=== PATIENT | female | born 1985 | race Caucasian/White ===

== ENCOUNTER 2019-01-09 04:00 | Inpatient (IN) ==
[2019-01-09] MEDS ORDERED: Metoclopramide 10 MG/2 ML VIAL IVP PRN (04:20)
[2019-01-09] MEDS ORDERED: Lidocaine 1% 20 ML MDV INFILT PRN (04:20)
[2019-01-09] MEDS ORDERED: Famotidine 20 MG/2 ML VIAL IVP PRN (04:20)
[2019-01-09] MEDS ORDERED: Ondansetron 4 MG/2 ML VIAL IVP PRN (04:20)
[2019-01-09] MEDS ORDERED: Naloxone 0.4 MG/ML INJ IVP PRN (04:20)
[2019-01-09] MEDS ORDERED: miSOPROStol 25 MCG TABLET PO PRN (04:20)
[2019-01-09] MEDS ORDERED: *HR* Nalbuphine 10 MG/ML AMPUL IVP PRN (04:20)
[2019-01-09] MEDS ORDERED: Ringers Solution, Lactated 1,000 ML IVC SCH (04:30)
[2019-01-09 05:20] LABS: Basophils % 0.3 %; Eosinophils # 0.1 K/mcL (0.0-0.6); Eosinophils % 1.2 %; Hematocrit 39.4 % (35.3-44.9); Hemoglobin 13.4 g/dL (11.5-15.4); Immature Granulocytes % 1.4 % (0-4); Lymphocytes # 2.6 K/mcL (0.6-4.6); Lymphocytes % 25.8 %; Mean Corpuscular Hemoglobin 29.3 pg (28.0-33.3); Mean Corpuscular Volume 86.2 fL (83.0-100.0); Mean Platelet Volume 9.4 fL (9.4-12.4); Monocytes # 0.8 K/mcL (0.0-1.3); Neutrophils # 6.3 K/mcL (1.6-8.9); Platelet Count 250 K/mcL (140-400); Red Blood Count 4.57 M/mcL (3.82-4.97); Red Cell Distribution Width 14.4 % (11.5-14.5); Segmented Neutrophils % 63.3 %
[2019-01-09 05:28] LABS: Amphetamine Screen,Urine Negative ng/mL (Cutoff=1000); Barbiturate Screen,Urine Negative ng/mL (Cutoff=200); Benzodiazepines Screen,Urine Negative ng/mL (Cutoff=200); Cannabinoid Screen,Urine Negative ng/mL (Cutoff = 50); Cocaine Screen,Urine Negative ng/mL (Cutoff= 300); Opiate Screen,Urine Negative ng/mL (Cutoff=300); Phencyclidine Screen,Urine Negative ng/mL (Cutoff=25)
[2019-01-09 06:04] LABS: Alanine Aminotransferase 10 Units/L (7-52); Aspartate Amino Transferase 14 Units/L (13-39); BUN/Creatinine Ratio 17 (6-26); Blood Urea Nitrogen 9 mg/dL (6-20); Creatinine,Urine 57 mg/dL; Lactate Dehydrogenase 127 Units/L (140-271); Protein/Creatinine Ratio,Urine 0.12 mg/mg (0.00-0.20); Uric Acid 5.6 mg/dL (2.3-7.6); eGFR For Non-African Americans > 60 (> 60)
[2019-01-09] MEDS ORDERED: Bupivacaine-MPF 0.25% 10 ML VIAL EP ONE (08:49)
[2019-01-09] MEDS ORDERED: *HR* FentaNYL (PF) 100 MCG/2 ML VIAL EP ONE (08:49)
--- NOTE | 2019-01-09 08:50 | History & Physical Report ---
Date of Encounter: 01/09/19 Time of Encounter: 08:48 24 Hour HP Update - Instructions Instructions: If the History and Physical is less than 30 days old and was completed prior to A.M. admission and or procedure and has NOT been updated on calendar day of procedure please complete this update prior to performing procedure. - Update Patient reports changes in Medical Condition: No Changes in examination, assessment, or condition: No Changes in Medication: No Preop tests/diagnostics Reviewed: Yes Consent for Planned Operative Procedure(s) Verified: Yes
[2019-01-09] MEDS ORDERED: Epidural Premix (fent/bupiv) 110 ML EP SCH (09:00)
[2019-01-09] MEDS ORDERED: Lidocaine -MPF 1% 5 ML AMPUL ONE ×2 (09:10→12:06)
[2019-01-09] MEDS ORDERED: Bupivacaine-MPF 0.25% 10 ML VIAL ONE (09:10)
[2019-01-09] MEDS ORDERED: *HR* FentaNYL (PF) 100 MCG/2 ML VIAL ONE (09:11)
--- NOTE | 2019-01-09 09:19 | Anesthesia Evaluation PreOp ---
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 ASSISTANT History: Denies Any Significant HX Other Medical History: Other (anxiety, chronic lower back pain) Anesthesia History: No Prior Anesthetic Complications (never had any procedure requiring GA; denies family h/o GA complications), Past Anesthesia (ALECIA x 1--no issues) : Yes Alcohol Use: none Drug use: none Medications and Allergies Astelin 01/07/18 [History] Buspirone HCl 10 mg PO BID 01/07/18 [History] Flonase 01/07/18 [History] Montelukast 01/07/18 [History] Zyrtec 10 mg PO DAILY 01/07/18 [History] Montelukast [Singulair] 10 mg PO DAILY 01/09/19 [History] Vits96/Iron Fum/Folic [ Tablet] 1 each PO DAILY 01/09/19 [History] Allergy/AdvReac Type Severity Reaction Status Date / Time pseudoephedrine AdvReac Anxiety Verified 01/09/19 04:48 [From [facility]] - Meds/Allergy Pre-op Review Medications Reviewed: Yes Allergies Reviewed: Yes Beta Blockers on Current Med List: No Anesthesia Results - Labs 01/09/19 05:00 01/09/19 05:00 Anesthesia Exam 144/88, HR 86 O2 Sat Height 1.75 m Weight 117 kg NPO (# of Hours): solids > 7hrs Pain Scale: 3 Pain Scale Used: Numeric (1 - 10) - HEENT Pupil (Motor): Pupils equal Mallampati: II Teeth: Normal Oral Opening: Greater than 3 - RAILWAYS ASSISTANT LOC: Oriented RAILWAYS ASSISTANT Motor: Normal RUE, Normal LUE, Normal RLE, Normal LLE, Normal Face RAILWAYS ASSISTANT Sensory: Normal: RUE, LUE, RLE, LLE, Face - Cardiac Rhythm: Regular Murmur: None - Pulmonary Breath Sounds: bilateral Clear Respiratory Effort: Symmetrical Anesthesia Assess/Plan ASA Score: 2 Level of consciousness: Cooperative, Oriented, Tranquil Anesthetic Plan: Epidural Autologous Blood: No Monitoring Plan: Standard Monitors Recovery Plan: Other
--- NOTE | 2019-01-09 10:19 | OB Labor Progress Note ---
Date of Encounter: 01/09/19 Time of Encounter: 10:17 Labor Progress Note - Subjective Subjective: Pt reports mild discomfort with contractions. - Cervix Cervix: 5/80/-1 - Heart Tones Heart Tones: Category I - [place]: 3-5 minutes - Interventions Interventions: AROM for moderate amount clear fluid. IUPC and FSE placed. - Plan Physician notified: Yes Physician notified details: Dr. Dominguez notified of interventions. Plan: Continue to monitor. Plan for pitocin to begin in 30 minutes if contractions not adequate.
[2019-01-09] MEDS ORDERED: Oxytocin 20 units/ LR 1000 mL 20 UNIT/1,000 ML BAG IVC SCH ×2 (10:30→22:22)
--- NOTE | 2019-01-09 12:34 | Anesthesia Procedures ---
Date of Encounter: 01/09/19 Time of Encounter: 11:30 Procedures: Anesthesia - Epidural/Spinal Patient ID/Chart reviewed: Yes Patient examined: Yes OB Eval: Gestational age: 39 weeks 3 days OB Eval: : 2 OB Eval: Hx Para: 1 OB Eval: Dilated at (cm): 5 OB Eval: Contractions: Non-stressed pattern Consent Obtained: Yes Supplemental Oxygen: None/Room Air Site Prep: Aseptic Technique, Sterile prep and drape, Povidone-Iodine 1% Patient position: upright Local Anesthetic: Lidocaine 1% Amount of Local Anesthetic used: 3 Touhy Needle Gauge: 18 Touhy Needle Depth (cm): 6 Catheter Depth at Skin (cm): 15 Test Dose (1.5% Lido + Epi): Volume given (mls): 5 Test Dose Result: Negative Loading Dose: Fentanyl (mcg): 100 Loading Dose: Other: 5 Loading Dose Administered: Thru Catheter Infusion Med: 0.125% Bupivacaine w/ 2 mcg/ml Fentanyl Infusion Rate (mls/hr): 16 (w/ demand bolus of 6mL q30min PRN) Catheter Secured in Place: Tegaderm, Tape Interspace Used: L4-L5 Loss of Resistance (LIDYA): Yes Blood: No CSF: No Paresthesia: No Procedure: multiple failed attempts by Fallon Milner CRNA at L3/4 & L4/5 interspaces. Patient not really tolerating procedure despite multiple injections of 1% lido for topicalization from either pain w/ Tuohy needle advancement or paresthesias. Dr. Velasco called to bedside and successful on 1st attempt at L4/5 interspace. VSS Vitals + FHT's: Please see Gabbi FLORES's electronic records for VS entry
--- NOTE | 2019-01-09 13:08 | OB Labor Progress Note ---
Addendum entered and electronically signed by Antoine Milner CRNA 01/09/19 20:56: Delivery Date: 01/09/19 Delivery Time: 19:24 Original Note: Date of Encounter: 01/09/19 Time of Encounter: 13:06 Labor Progress Note - Subjective Subjective: The patient feels tingling in her hands bilaterally. She has nasal congestion and has been tearful after the long process of getting her epidural. She has no shortness of breath. She reports comfort with contractions after epidural placement - Vital Signs Vital Signs: Afebrile, vital signs stable. Blood pressure 129/72, pulse 93 - Cervix Cervix: Exam attempted but unable to reach cervix, bladder full - Heart Tones Heart Tones: 120s baseline, CAT 1 - [place]: Contractions 2-4 minutes after amniotomy - Interventions Interventions: 39 week IUP with transient hypertension, LGA fetus with maternal obesity. Estimated weight 8 lbs. 12 oz. on 38 week ultrasound. Continue close monitoring of labor and patient's condition. She reports improved symptoms with being elevated. SANITIZER decreased epidural rate from 16 down to 12. - Plan Plan: Continue induction of labor. Wise catheter to drain bladder. Anticipate vaginal delivery
[2019-01-09] MEDS ORDERED: Acetaminophen 325 MG TABLET PO PRN ×2 (15:11→22:22)
[2019-01-09] MEDS ORDERED: Ketorolac 30 MG/ML VIAL IVP ONE (19:52)
--- NOTE | 2019-01-09 20:02 | OB/GYN Procedure Note ---
Delivery - Delivery Date: 01/09/19 Provider: Vannesa Dominguez Intrapartum events: none Delivery induction: misoprostol Delivery augmentation: rupture of membranes, pitocin Delivery monitor: external FHT, external uterine, internal FHT, internal uterine Anesthesia: epidural Quantitated Blood Loss: 50 - Infant (s) Infant A Infant Delivery Date: 01/09/19 Delivery Time: 19:24 Presentation: vertex Position: SKYLAR Route of delivery: Gender: Male Viability: Viable Pounds: 8 Ounces: 13 Weight Gram: 3.99 kg at 1 minute: 8 at 5 mins: 9 Shoulder Dystocia: not encountered Placenta: spontaneous Cord: nuchal cord, 3 umbilical vessels, nuchal reduced - Repair Episiotomy: none Laceration Description: Perineal - 2nd Degree - Complications Delivery complications: none Delivery comments: The patient was complete and pushing with epidural anesthesia with a spontaneous vaginal delivery in the SKYLAR position of a vigorous male infant weighing 8 lbs.13 oz. with Apgars of 8 at 1 minute and 9 at 5 minutes. There was a nuchal cord x1, which was reduced on the perineum. Infant was placed on the maternal abdomen and handed to the nursery care team. The cord was clamped and cut after pulsations ceased. The placenta was delivered spontaneous and intact. Three- vessel cord confirmed. Second-degree midline laceration was repaired with 3-0 Monocryl in usual fashion. Estimated blood loss 50 mL, complications none. Both mother and infant were recovering in stable condition in the LDR - Disposition Mom disposition: stable in LDR disposition: stable in LDR
[2019-01-09] MEDS ORDERED: Benzocaine/Menthol 56 GM AEROSOL SPRAY TP PRN (22:22)
[2019-01-09] MEDS ORDERED: Lanolin 7 G OINT...G. TP PRN (22:22)
[2019-01-10] MEDS: Ibuprofen 600 MG TABLET PO PRN (02:24)
[2019-01-10] MEDS: *HR* HYDROcodone/Acet 5/325 mg TABLET PO PRN ×4 (07:22→20:26)
[2019-01-10] MEDS: Prenatal Vit/FA 1 EACH TABLET PO SCH (09:56)
[2019-01-10] MEDS: Loratadine 10 MG TABLET PO SCH (09:57)
--- NOTE | 2019-01-10 11:00 | OB/GYN Progress Note ---
Date of Encounter: 01/10/19 Time of Encounter: 10:56 - Assessment and Plan (1) Status post vaginal delivery Current Visit: Yes Status: Acute S/P vaginal delivery day 1 VSS Lochia light without clots Voiding without difficulty Passing gas Tolerating regular diet Anticipate discharge home tomorrow POC per consult with Dr. Davenport Subjective - Subjective Interval history: S/P Vaginal Delivery Day 1 Patient states pain adequate with medication Bleeding is light without clots Passing gas with difficulty C/o neck pain Doesn't feel ready to be discharged Anticipate discharge home tomorrow Patient reports: appetite normal, voiding normally, pain well controlled, ambulating normally : doing well Objective - Latest Vital Signs Latest vital signs: Vital Signs Temp Pulse Resp BP Pulse Ox 01/10/19 08:31 97.9 F 89 14 117/79 96 01/10/19 03:30 99.2 F 95 14 123/83 97 01/10/19 00:13 98.5 F 90 16 123/78 96 01/09/19 23:15 99.3 F 98 16 114/74 97 01/09/19 22:15 98.4 F 88 16 143/81 97 Intake and Output 01/09/19 01/10/19 01/10/19 23:59 07:59 15:59 Output Total 600 / 600 Balance -600 / -600 Output: Urine 600 / 600 Other: Weight 111.221 kg Patient Weight 01/10/19 23:59 Weight 111.221 kg - Exam Lungs: bilateral: normal Chest: Normal S1, Normal S2 Extremities: Present: normal Abdomen: Present: normal appearance, soft. Absent: gravid Uterus: Present: normal, firm Uterus Position: 1 Finger Below Umbilicus, Midline
[2019-01-11] MEDS: Ibuprofen 600 MG TABLET PO PRN (07:02)
[2019-01-11] MEDS: Loratadine 10 MG TABLET PO SCH (08:43)
[2019-01-11] MEDS: Prenatal Vit/FA 1 EACH TABLET PO SCH (08:43)
[2019-01-11 08:59] VITALS: BP 130/87
--- NOTE | 2019-01-11 09:38 | Discharge Summary ---
Date of Encounter: 01/11/19 Time of Encounter: 09:34 - Discharge Diagnosis (1) Status post vaginal delivery Priority: Primary Status: Acute Comments: Pt states feeling very anxious and sore, pt states she had panic attack last n ight and has not been able to sleep. Currently on Buspar managed by PCP. Pain well managed on po pain medication and tolerates diet. Desires discharge. Offered to stay today, but patient wants to be discharged. - Discharge Medications Prescriptions: New Acetaminophen [Tylenol] 650 mg PO Q6HR PRN tablet PRN Reason: Mild Pain Ibuprofen [Motrin] 600 mg PO Q6HR PRN #60 tablet PRN Reason: Cramping Docusate [Colace] 100 mg PO BID #30 capsule Lanolin [Lansinoh] 1 appl TP Q4HR PRN oint...g. PRN Reason: Continue Zyrtec 10 mg PO DAILY Montelukast Flonase Buspirone HCl 10 mg PO BID Astelin Montelukast [Singulair] 10 mg PO DAILY Vits96/Iron Fum/Folic [ Tablet] 1 each PO DAILY Home Medications: Astelin 01/07/18 [History] Buspirone HCl 10 mg PO BID 01/07/18 [History] Flonase 01/07/18 [History] Montelukast 01/07/18 [History] Zyrtec 10 mg PO DAILY 01/07/18 [History] Montelukast [Singulair] 10 mg PO DAILY 01/09/19 [History] Vits96/Iron Fum/Folic [ Tablet] 1 each PO DAILY 01/09/19 [History] Acetaminophen [Tylenol] 650 mg PO Q6HR PRN tablet 01/11/19 [Rx] Docusate [Colace] 100 mg PO BID #30 capsule 01/11/19 [Rx] Ibuprofen [Motrin] 600 mg PO Q6HR PRN #60 tablet 01/11/19 [Rx] Lanolin [Lansinoh] 1 appl TP Q4HR PRN oint...g. 01/11/19 [Rx] Allergies/Adverse Reactions: Allergy/AdvReac Type Severity Reaction Status Date / Time pseudoephedrine AdvReac Anxiety Verified 01/09/19 04:48 [From [facility]] Data Procedures and tests throughout hospitalization: Laboratory Tests 01/09/19 01/09/19 01/09/19 05:00 05:00 05:00 WBC 9.9 RBC 4.57 Hgb 13.4 Hct 39.4 MCV 86.2 MCH 29.3 MCHC 34.0 RDW 14.4 Plt Count 250 MPV 9.4 Immature Gran % 1.4 Seg Neutrophils % 63.3 Lymphocytes % 25.8 Monocytes % 8.0 Eosinophils % 1.2 Basophils % 0.3 Neutrophils # 6.3 Lymphocytes # 2.6 Monocytes # 0.8 Eosinophils # 0.1 Basophils # 0.0 BUN 9 Creatinine 0.52 L Est GFR ( Amer) > 60 Est GFR (Non-Af Amer) > 60 BUN/Creatinine Ratio 17 Uric Acid 5.6 AST 14 ALT 10 Lactate Dehydrogenase 127 L Urine Creatinine 57 Protein/Creatinin Ratio 0.12 Urine Total Protein 7 Urine Opiates Screen Negative Ur Barbiturates Screen Negative Ur Phencyclidine Scrn Negative Ur Amphetamines Screen Negative U Benzodiazepines Scrn Negative Urine Cocaine Screen Negative U Marijuana (THC) Screen Negative Ur Drug Screen Interp See Below Date of admission: 01/09/19 04:08 Primary care physician: Jarocho Chapman DO Consults: 01/09/19 22:22 Consult to Senior Accounts Payable Specialist [CONS] Routine Comment: Vaginal delivery, consult needed 01/10/19 07:06 Consult to Key Punch Operator (W&C) [CONS] Routine Reason For Exam: Reason for SW Consult: controlling spouse Discharging clinician: Niesha Levine Anticipated date of discharge: 01/11/19 - Patient Status Disposition: Home, Self-Care Condition: Good Functional capacity at discharge: independent ambulation Overall status at discharge: patient is back to baseline - Discharge Instructions Follow Up With: Arash Chapman DO [Primary Care Provider] - Vannesa Dominguez MD [Partnered Physician] - - Diet and Activity Activity: resume usual activities as tolerated Diet: regular diet Hospital Course Reason for admission: induction of labor, IUP at term Delivery: Episiotomy: none Laceration: 2nd degree Other procedures: none complications: none Discharge diagnosis: IUP at term delivered baby: male Hospital course: elivery - Delivery Date: 01/09/19 Provider: Vannesa Dominguez Intrapartum events: none Delivery induction: misoprostol Delivery augmentation: rupture of membranes, pitocin Delivery monitor: external FHT, external uterine, internal FHT, internal uterine Anesthesia: epidural Quantitated Blood Loss: 50 - (s) Infant A Infant Delivery Date: 01/09/19 Delivery Time: 19:24 Presentation: vertex Position: SKYLAR Route of delivery: Gender: Male Viability: Viable Pounds: 8 Ounces: 13 Weight Gram: 3.99 kg at 1 minute: 8 at 5 mins: 9 Shoulder Dystocia: not encountered Placenta: spontaneous Cord: nuchal cord, 3 umbilical vessels, nuchal reduced - Repair Episiotomy: none Laceration Description: Perineal - 2nd Degree - Complications Delivery complications: none Delivery comments: The patient was complete and pushing with epidural anesthesia with a spontaneous vaginal delivery in the SKYLAR position of a vigorous male infant weighing 8 lbs.13 oz. with Apgars of 8 at 1 minute and 9 at 5 minutes. There was a nuchal cord x1, which was reduced on the perineum. was placed on the maternal abdomen and handed to the nursery care team. The cord was clamped and cut after pulsations ceased. The placenta was delivered spontaneous and intact. Three- vessel cord confirmed. Second-degree midline laceration was repaired with 3-0 Monocryl in usual fashion. Estimated blood loss 50 mL, complications none. Both mother and were recovering in stable condition in the LDR - Disposition Mom disposition: stable in PP and appropriate for discharge Time Attestation: Total time spent providing and/or coordinating discharge services: Time Spent: Less than 30 minutes Exam - Constitutional Vitals: Temp Pulse Resp BP Pulse Ox 97.8 F 94 18 130/87 98 01/11/19 08:40 01/11/19 08:40 01/11/19 08:40 01/11/19 08:40 01/11/19 08:40 General appearance IM: A&O X 3 - Respiratory Respiratory exam: Present: CTAB - Cardiovascular Cardiovascular exam IM: Present: RRR - GI/Abdominal GI/Abdominal exam IM: soft - Uterine Tone: Firm Uterus Position: At Umbilicus - Extremities Exam Extremities exam IM: Present: normal capillary refill - Neurological Exam Neurological exam: normal gait, oriented X3 - Psychiatric Additional comments: Anxious, but states has coping mechanisms, and desires discharge.
== END 2019-01-11 13:05 | disposition home or self-care (01) | DRG 807 ==
LOC: 1NENULAB 04:08 → 1NENUOBS 22:15
PROVIDERS: ADMIT Advanced Practice Midwife; ATTEND Obstetrics & Gynecology